=== PATIENT | female | born 1995 | race Caucasian/White ===

== ENCOUNTER → 2017-03-01 | Outpatient (CLI) | payer MEDICAID ==
[~2017-03-01] MED LIST: PRENATAL PLUS1 TA1 PO; REGLAN10 M2 PO
--- NOTE | 2017-03-02 10:27 | RADIOLOGY REPORT PS360 ---
US PREG COMP: INDICATION: OB ultrasound complete ANATOMY OB US ORDERING PHYSICIAN: Walter Leong MD PATIENT AGE: 21 years TECHNIQUE: ultrasound transabdominal scanning. COMPARISON: No previous relevant studies. FINDINGS: Single viable intrauterine gestation. Cephalic position. Placenta: Anterior placenta grade 1. There is average amount fluid. The cervix appears satisfactory. Closed and measuring 3 cm in length. Complete survey performed and was unremarkable on the submitted images as in PACS. No discrete anomalies identified on survey imaging by technologist. Active fetus. Three-vessel cord with satisfactory umbilical cord insertion. 4- chamber heart noted. Survey of brain & ventricles. Face and neck survey unremarkable. Diaphragm and chest views unremarkable. Abdomen: Both kidneys noted and unremarkable. Stomach noted and satisfactory. Spine: Survey of the spine satisfactory with no anomalies identified nor imaged. Both arms and legs noted. Amniotic Fluid: Adequate. Maternal adnexa: No significant findings. Measurements: Average ultrasound age 20 weeks 1 day. Gestational Age 20 weeks 1 day. Estimated due date by ultrasound age 1207/18/2017. Estimated weight 320 grams. BPD = 20 weeks 4 days OFD = 20 weeks 6 days HC = 20 weeks 0 days AC = 20 weeks 2 days FL = 19 weeks 5 days Heart Rate = 144 BPM Cerebellum = 19 weeks 3 days Humerus = 19 weeks 5 days HC/AC is 1.16. CI is 78%. FL/BPD is 65%. FL/AC is 21%. IMPRESSION: There is a single live fetus which is in cephalic presentation at 20 weeks 1 day average ultrasound age. Fetus is active. No obvious anomalies. Placenta is anterior. Please see above for detail
== END ==
LOC: RAD 13:00
DX: Z36 Encounter for antenatal screening of mother (principal)

== ENCOUNTER 2017-06-12 03:18 | Emergency (ER) | payer MEDICAID ==
[~2017-06-12] VITALS: Ht 165.1 cm; Wt 70.3 kg
--- NOTE | 2017-06-12 03:41 | Emergency Room Report ---
History of Present Illness Time Seen by MD Navarro Presenting Problem in Triage Pt arrived:Walked Presenting Problem:CP TO LEFT SIDE RADIATING TO BACK, PT STATES SHE BECAME SOB WHEN PAIN HIT HER AND HER CHEEKS STARTED TO TINGLE. 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 N Clinical Suspician of Infection? N Mental Status: 1 - Regular (Normal Baseline) Sepsis Risk:Possible Sepsis Risk Have you (or family members/close friends) recently traveled outside the [place]? N If Yes, where/when: Have you had exposure to infectious disease within the past month? N TB? Other? Specify: Source patient, RN notes reviewed, family, old records Exam Limitations no limitations Comment 35 week gravid wf who has onset this am of epigastric pain with rad to ant chest this am- no cough or fever and no known cardiac disease Cardiac Chest Pain Chest pain indicative of cardiac No Timing/Duration this morning Severity moderate ALLERGIES Coded Allergies: ciprofloxacin (From CIPRO) (S-DIFF. BREATHING 01/17/17) Home Medications Reported Medications MULTIVIT-MIN W/FE-FA ( Multivitamin Tablet) 1 TAB PO DAILY History Medical History General CAD? No Angina: No NE: No Hypertension? No Hyperlipidemia? No CHF? No DVT? No PE? No COPD? No Asthma? No Anemia? No GERD? No Gastric ulcers? No GI Bleed? No Hernia? No Thyroid Problems? No Hypothyroidism? No CVA? No Seizures? No Diabetes? No Renal Insuffiency? No End Stage Renal Disease? No UTI? Yes Stones? No BPH? No GB Disease: No Nephritic Syndrome? No Asplenia? No Hepatitis? No Sickle Cell Disease? No Arthritis? No Migraines? Yes Cataracts? No Glaucoma? No MRSA? No HIV? No TB? No Anxiety? Yes Depression? No Cancer? No More? 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 Respiratory denies cough, denies shortness of breath, denies wheezing Cardiovascular see HPI, chest pain, denies palpitations, denies syncope Gastrointestinal denies abdominal pain, denies diarrhea, denies vomiting Genitourinary denies: dysuria, frequency, hesitancy, hematuria. Musculoskeletal denies joint pain, denies joint swelling Skin denies rash Psychiatric/Neurological denies headache, denies seizure Physical Exam Vital Signs Vital Signs Date Time Temp Pulse Resp B/P Pulse O2 O2 Flow FiO2 Ox Delivery Rate 06/12 0338 113 20 99 06/12 0323 98.7 113 20 125/87 99 - WBC >12,000 or <4,000 or 10% bands? 2 or more SIRS Criteria Met? B/P:125/87 MAP:99 Creatinine >2.0? UA output<0.5ml/kg/hr for 2 hrs? Platelet count >100,000? Lactate >2.0mmol/1? INR >1.2 or PTT > than 60 sec? Evidence of Organ Dysfunction? Provider documented clinical suspician of infection? N Sepsis Criteria Count: 2 Sepsis Risk: Possible Sepsis Risk General Appearance no apparent distress Eye Exam - bilateral eye PERRL, bilateral eye EOMI Ear, Nose, Throat normal ENT inspection Neck supple Respiratory Status No: respiratory distress. Lung Sounds bilateral: lungs clear. 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 No Results/Orders Laboratory Tests 06/12/17329: Creatine Kinase 31, CK-MB (CK-2) Rel Index 1.6, CK and CKMB Interp < 0.5, Troponin I < 0.02 06/12/17329: Sodium 138, Potassium 3.1 L, Chloride 104, Carbon Dioxide 24, BUN 5 L, Creatinine 0.4 L, Estimated Creat Clear 243 H, Estimated GFR (MDRD) 198, Glucose 99, Calcium 9.1, Total Bilirubin 0.2, AST 15, ALT 11 L, Alkaline Phosphatase 115, Total Protein 6.5, Albumin 2.8 L, Globulin 3.7 H, Albumin/ Globulin Ratio 0.8 L, Amylase 77, Lipase 162, WBC 14.1 H, RBC 3.93 L, Hgb 11.8 L, Hct 34.5 L, MCV 87.7, RDW 13.9, Plt Count 248, MPV 9.2, Gran % 71.9, Gran # 10.2 H, Lymphocytes % 21.0, Monocytes % 5.9, Eosinophils % 1.0, Basophils % 0.3, Lymphocytes # 3.0, Monocytes # 0.8, Eosinophils # 0.1, Basophils # 0.0, PUBS MCHC 34.3, MCH 30.0 Current Medication Orders Sig/Rehan Start time Last Medication Dose Route Stop Time Status Admin Sodium Chloride 10 ML PRN PRN 06/12 345 AC IV 06/13 341 Sodium Chloride 1,000 ML .Q1H1M 06/12 345 AC 06/12 IV 06/12 445 0346 Sodium Chloride 10 ML PRN PRN 06/12 345 AC IV 06/13 345 Sodium Chloride 1,000 ML .STK-MED ONE 06/12 342 DC IV Orders Procedure Date/time Status CARDIAC ENZYMES 06/12 0403 Complete 12 LEAD EKG-LEO (INITIAL) 06/12 346 Active ELECTROCARDIOGRAM REQUEST 06/12 346 Active IV SALINE LOCK 06/12 341 Active LIPASE 06/12 341 Complete CBC WITH AUTO DIFF 06/12 341 Complete CHEM 12 PROFILE 06/12 341 Complete AMYLASE 06/12 341 Complete CM/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 ST/Twave chgs Departure Departure Time of Disposition 440 Disposition DC Home or Self Care(routine) Clinical Impression Primary Impression: Chest pain Qualifiers: Chest pain type: unspecified Qualified Code: R07.9 - Chest pain, unspecified Secondary Impressions: Qualifiers: Weeks of gestation: 35 weeks Qualified Code: Z3A.35 - 35 weeks gestation of Condition STABLE Referrals Salo ALVARADO,Walter J. Patient Instructions DI for -- Discomforts and Remedies Additional Instructions recheck if needed and call dr lombardi for follow up Discharge Counseling Counseled pt/family regarding diagnosis, test results, follow up needs ED Critical Care Critical Care No at [phone]
--- NOTE | 2017-06-12 03:41 | Emergency Room Report ---
History of Present Illness Time Seen by MD Navarro Presenting Problem in Triage Pt arrived:Walked Presenting Problem:CP TO LEFT SIDE RADIATING TO BACK, PT STATES SHE BECAME SOB WHEN PAIN HIT HER AND HER CHEEKS STARTED TO TINGLE. 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 N Clinical Suspician of Infection? N Mental Status: 1 - Regular (Normal Baseline) Sepsis Risk:Possible Sepsis Risk Have you (or family members/close friends) recently traveled outside the [place]? N If Yes, where/when: Have you had exposure to infectious disease within the past month? N TB? Other? Specify: Source patient, RN notes reviewed, family, old records Exam Limitations no limitations Comment 35 week gravid wf who has onset this am of epigastric pain with rad to ant chest this am- no cough or fever and no known cardiac disease Cardiac Chest Pain Chest pain indicative of cardiac No Timing/Duration this morning Severity moderate ALLERGIES Coded Allergies: ciprofloxacin (From CIPRO) (S-DIFF. BREATHING 01/17/17) Home Medications Reported Medications MULTIVIT-MIN W/FE-FA ( Multivitamin Tablet) 1 TAB PO DAILY History Medical History General CAD? No Angina: No CA: No Hypertension? No Hyperlipidemia? No CHF? No DVT? No PE? No COPD? No Asthma? No Anemia? No GERD? No Gastric ulcers? No GI Bleed? No Hernia? No Thyroid Problems? No Hypothyroidism? No CVA? No Seizures? No Diabetes? No Renal Insuffiency? No End Stage Renal Disease? No UTI? Yes Stones? No BPH? No GB Disease: No Nephritic Syndrome? No Asplenia? No Hepatitis? No Sickle Cell Disease? No Arthritis? No Migraines? Yes Cataracts? No Glaucoma? No MRSA? No HIV? No TB? No Anxiety? Yes Depression? No Cancer? No More? 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 Respiratory denies cough, denies shortness of breath, denies wheezing Cardiovascular see HPI, chest pain, denies palpitations, denies syncope Gastrointestinal denies abdominal pain, denies diarrhea, denies vomiting Genitourinary denies: dysuria, frequency, hesitancy, hematuria. Musculoskeletal denies joint pain, denies joint swelling Skin denies rash Psychiatric/Neurological denies headache, denies seizure Physical Exam Vital Signs Vital Signs Date Time Temp Pulse Resp B/P Pulse O2 O2 Flow FiO2 Ox Delivery Rate 06/12 0338 113 20 99 06/12 0323 98.7 113 20 125/87 99 - WBC >12,000 or <4,000 or 10% bands? 2 or more SIRS Criteria Met? B/P:125/87 MAP:99 Creatinine >2.0? UA output<0.5ml/kg/hr for 2 hrs? Platelet count >100,000? Lactate >2.0mmol/1? INR >1.2 or PTT > than 60 sec? Evidence of Organ Dysfunction? Provider documented clinical suspician of infection? N Sepsis Criteria Count: 2 Sepsis Risk: Possible Sepsis Risk General Appearance no apparent distress Eye Exam - bilateral eye PERRL, bilateral eye EOMI Ear, Nose, Throat normal ENT inspection Neck supple Respiratory Status No: respiratory distress. Lung Sounds bilateral: lungs clear. 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 No Results/Orders Laboratory Tests 06/12/17329: Creatine Kinase 31, CK-MB (CK-2) Rel Index 1.6, CK and CKMB Interp < 0.5, Troponin I < 0.02 06/12/17329: Sodium 138, Potassium 3.1 L, Chloride 104, Carbon Dioxide 24, BUN 5 L, Creatinine 0.4 L, Estimated Creat Clear 243 H, Estimated GFR (MDRD) 198, Glucose 99, Calcium 9.1, Total Bilirubin 0.2, AST 15, ALT 11 L, Alkaline Phosphatase 115, Total Protein 6.5, Albumin 2.8 L, Globulin 3.7 H, Albumin/ Globulin Ratio 0.8 L, Amylase 77, Lipase 162, WBC 14.1 H, RBC 3.93 L, Hgb 11.8 L, Hct 34.5 L, MCV 87.7, RDW 13.9, Plt Count 248, MPV 9.2, Gran % 71.9, Gran # 10.2 H, Lymphocytes % 21.0, Monocytes % 5.9, Eosinophils % 1.0, Basophils % 0.3, Lymphocytes # 3.0, Monocytes # 0.8, Eosinophils # 0.1, Basophils # 0.0, PUBS MCHC 34.3, MCH 30.0 Current Medication Orders Sig/Rehan Start time Last Medication Dose Route Stop Time Status Admin Sodium Chloride 10 ML PRN PRN 06/12 345 AC IV 06/13 341 Sodium Chloride 1,000 ML .Q1H1M 06/12 345 AC 06/12 IV 06/12 445 0346 Sodium Chloride 10 ML PRN PRN 06/12 345 AC IV 06/13 345 Sodium Chloride 1,000 ML .STK-MED ONE 06/12 342 DC IV Orders Procedure Date/time Status CARDIAC ENZYMES 06/12 0403 Complete 12 LEAD EKG-LEO (INITIAL) 06/12 346 Active ELECTROCARDIOGRAM REQUEST 06/12 346 Active IV SALINE LOCK 06/12 341 Active LIPASE 06/12 341 Complete CBC WITH AUTO DIFF 06/12 341 Complete CHEM 12 PROFILE 06/12 341 Complete AMYLASE 06/12 341 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 ST/Twave chgs Departure Departure Time of Disposition 440 Disposition DC Home or Self Care(routine) Clinical Impression Primary Impression: Chest pain Qualifiers: Chest pain type: unspecified Qualified Code: R07.9 - Chest pain, unspecified Secondary Impressions: Qualifiers: Weeks of gestation: 35 weeks Qualified Code: Z3A.35 - 35 weeks gestation of Condition STABLE Referrals Salo ALVARADO,Walter J. Patient Instructions DI for -- Discomforts and Remedies Additional Instructions recheck if needed and call dr lombardi for follow up Discharge Counseling Counseled pt/family regarding diagnosis, test results, follow up needs ED Critical Care Critical Care No at 044
[2017-06-12 03:45] LABS: HEMOGLOBIN 11.8 g/dL (12.2-16.2)
--- OUTSIDE RECORDS SUMMARY | 2017-06-12 04:03 | External Medical Summary Rpt | CCD ---
Author Author , GERONIMO MELTON Address Unknown Phone [email or web address] Purpose Continuity of Care Document - 02-10-2012 through 2016 Problems Code Diagnosis DOS Provider Status Z53.21 PROCEDURE 01-25-2017 AND TREATMENT NOT CARRIED OUT DUE TO PATIENT LEAVING PRIOR TO BEING SEEN BY HEALTH CARE PROVIDER F17.210 NICOTINE 11-12-2016 DEPENDENCE, CIGARETTES, UNCOMPLICAT ED F41.9 ANXIETY 11-12-2016 DISORDER, UNSPECIFIED O26.891 OTHER 11-12-2016 SPECIFIED RELATED CONDITIONS, FIRST TRIMESTER S40.862A INSECT BITE 11-12-2016 (NONVENOMOU S) OF LEFT UPPER ARM, INITIAL ENCOUNTER W57.XXXA BITTEN OR 11-12-2016 STUNG BY NONVENOMOUS INSECT AND OTHER NONVENOMOUS ARTHROPODS, INITIAL ENCOUNTER Z88.1 ALLERGY 11-12-2016 STATUS TO OTHER ANTIBIOTIC AGENTS STATUS G43.909 MIGRAINE, UNSP, NOT INTRACTABLE , WITHOUT STATUS MIGRAINOSUS Results Labs Lab Lab Date Result Refere Interp Status Commen Order Detail nces retati t Range on CHLAMYDIA AND GONORRHEA TESTING (11-10-2016 10:30) Chlamyd POSITIV complet ia 017 E ed trachom 10:30 atis rRNA [Presen ce] in Unspeci fied specime n by Probe & target amplifi cation method Neisser NEGATIV complet ia 017 E ed gonorrh 10:30 oeae rRNA [Presen ce] in Unspeci fied specime n by Probe & target amplifi cation method CHLAMYDIA AND GONORRHEA TESTING (11-10-2016 10:30) COLLECT K. 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 WHITE, complet TY 017 NON-HIS ed 10:30 PANIC KIT 03/2017 complet EXPIRAT 017 ed ION 10:30 DATE SYMPTOM NO complet S 017 ed 10:30 REASON VOLUNTE complet FOR 017 ER/MEDI ed REQUEST 10:30 ESTEVAN PROBLEM SPECIME URINE complet N 017 ed SOURCE 10:30 PREGNAN 11-10- YES complet T 017 ed 10:30 CHART N/A complet NUMBER 017 ed 10:30 Chlamyd 11-10- Pending complet ia 017 ed trachom 10:30 atis rRNA [Presen ce] in Unspeci fied specime n by Probe & target amplifi cation method Neisser Pending complet ia 017 ed gonorrh 10:30 oeae rRNA [Presen ce] in Unspeci fied specime n by Probe & target amplifi cation method CHLAMYDIA AND GONORRHEA TESTING (04-30-2015 13:40) [place]lamyd NEGATIV complet ia 015 E ed trachom 13:40 atis rRNA [Presen ce] in Unspeci fied specime n by Probe & target amplifi cation method Neisser NEGATIV complet ia 015 E ed gonorrh 13:40 oeae rRNA [Presen ce] in Unspeci fied specime n by Probe & target amplifi cation method CHLAMYDIA AND GONORRHEA TESTING (04-30-2015 13:40) COLLECT PT/ M. complet OR 015 MAGALY ed 13:40 GOMEZ FLAT CUTTER ETHNICI WHITE, complet TY 015 NON-HIS ed 13:40 PANIC KIT complet EXPIRAT 015 015 ed ION 13:40 DATE SYMPTOM NO complet S 015 ed 13:40 REASON REVISIT complet FOR 015 /ANNUAL ed REQUEST 13:40 FAMILY PLANNIN G VISIT SPECIME URINE complet N 015 ed SOURCE 13:40 PREGNAN NO complet T 015 ed 13:40 CHART NA complet NUMBER 015 ed 13:40 Chlamyd Pending complet ia 015 ed trachom 13:40 atis rRNA [Presen ce] in Unspeci fied specime n by Probe & target amplifi cation method Neisser Pending complet ia 015 ed gonorrh 13:40 oeae rRNA [Presen ce] in Unspeci fied specime n by Probe & target amplifi cation method CHLAMYDIA AND GONORRHEA TESTING (02-10-2012 16:40) [place]lamyd NEGATIV complet ia 012 E ed trachom 16:40 atis rRNA [Presen ce] in Unspeci fied specime n by Probe & target amplifi cation method Neisser NEGATIV complet ia 012 E ed gonorrh 16:40 oeae rRNA [Presen ce] in Unspeci fied specime n by Probe & target amplifi cation method CHLAMYDIA AND GONORRHEA TESTING (02-10-2012 16:40) COLLECT [id number] complet OR 012 ed 16:40 ETHNICI WHITE, complet TY 012 NON-HIS ed 16:40 PANIC KIT 05-25-2 complet EXPIRAT 012 012 ed ION 16:40 DATE SYMPTOM NO complet S 012 ed 16:40 REASON REVISIT complet FOR 012 /ANNUAL ed REQUEST 16:40 FAMILY PLANNIN G VISIT SPECIME URINE complet N 012 ed SOURCE 16:40 PREGNAN NO complet T 012 ed 16:40 CHART NN complet NUMBER 012 ed 16:40 Chlamyd Pending complet ia 012 ed trachom 16:40 atis rRNA [Presen ce] in Unspeci fied specime n by Probe & target amplifi cation method Neisser Pending complet ia 012 ed gonorrh 16:40 oeae rRNA [Presen ce] in Unspeci fied specime n by Probe & target amplifi cation method
--- OUTSIDE RECORDS SUMMARY | 2017-06-12 04:03 | External Medical Summary Rpt | CCD ---
Author Author [employer] Organization [employer] Address Unknown Phone Unavailable Purpose Continuity of Care Document - through 2016
--- OUTSIDE RECORDS SUMMARY | 2017-06-12 04:03 | External Medical Summary Rpt | CCD ---
Author Author , GERONIMO MELTON Address Unknown Phone [email or web address] Purpose Continuity of Care Document - 02-10-2012 [...] K. 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
--- OUTSIDE RECORDS SUMMARY | 2017-06-12 04:04 | External Medical Summary Rpt | CCD ---
Demographics Preferred Language Albanian Marital Status Unknown Religion Affiliation Unknown Race Unknown Ethnic Group Unknown Author Author , GERONIMO MELTON Address Unknown Phone Immunization Unable to retrieve immunization data due to connection failure with Immunization Registry. Please try again later.
--- OUTSIDE RECORDS SUMMARY | 2017-06-12 04:04 | External Medical Summary Rpt | CCD ---
Demographics Preferred Language Irish Marital Status Unknown Christianity Affiliation Unknown Race Unknown Ethnic Group Unknown Author Author , GERONIMO MELTON Address Unknown Phone Immunization Unable to retrieve immunization data due to connection failure with Immunization Registry. Please try again later.
--- OUTSIDE RECORDS SUMMARY | 2017-06-12 04:05 | External Medical Summary Rpt ---
Author Author [employer], [employer] Organization [employer] Address Unknown Phone Unavailable Results CBC W Auto Differential panel in Blood Observa Value Referen Units Interpr Notes Date tion ce etation Range Basophils 0 - 0.2 K/MM3 Normal No Jun 12 informati 2016 3:30 [#/volume on in AM ] in source Blood by data Automated count Basophils 0.1 - 2.0 % Normal No Jun 12 /100 informati 2017 3:30 leukocyte on in AM s in source Blood by data Automated count Eosinophi 0.0 - 0.4 K/mm3 Normal No Jun 12 ls informati 2016 3:30 [#/volume on in AM ] in source Blood by data Automated count Eosinophi 0.1 - % Normal No Jun 12 ls/100 12.0 informati 2016 3:30 leukocyte on in AM s in source Blood by data Automated count Granulocy 1.8 - 7.8 K/mm3 High No Jun 12 ansley informati 2017 3:30 [#/volume on in AM ] in source Blood by data Automated count Granulocy 37.0 - % Normal No Jun 12 ansley/100 80.0 informati 2016 3:30 leukocyte on in AM s in source Blood by data Automated count Hematocri 37.0 - % Low No Jun 12 t [Volume 47.0 informati 2016 3:30 on in AM Fraction] source of Blood data Hemoglobi 12.2 - g/dL Low No Jun 12 n 16.2 informati 2016 3:30 [Mass/vol on in AM ume] in source Blood data Lymphocyt 0.7 - 4.5 K/mm3 Normal No Jun 12 es informati 2016 3:30 [#/volume on in AM ] in source Unspecifi data ed specimen by Automated count Lymphocyt 10 - 50.0 % Normal No Jun 12 es informati 2016 3:30 [#/volume on in AM ] in source Unspecifi data ed specimen by Automated count Erythrocy 27 - 31.2 pg Normal No Jun 12 te mean informati 2016 3:30 corpuscul on in AM ar source hemoglobi data n [Entitic mass] Erythrocy 31.8 - g/dl Normal No Jun 12 te mean 35.4 informati 2016 3:30 corpuscul on in AM ar source hemoglobi data n concentra tion [Mass/vol ume] by Automated count Erythrocy 82.2 - fl Normal No Jun 12 te mean 97.8 informati 2016 3:30 corpuscul on in AM ar volume source [Entitic data volume] by Automated count Monocytes 0.1 - 1.0 K/mm3 Normal No Jun 12 informati 2016 3:30 [#/volume on in AM ] in source Blood by data Automated count Monocytes 1.7 - 9.3 % Normal No Jun 12 /100 informati 2016 3:30 leukocyte on in AM s in source Blood by data Automated count Platelet 7.4 - fl Normal No Jun 12 mean 10.4 informati 2016 3:30 volume on in AM [Entitic source volume] data in Blood by Automated count Platelets 142 - 424 K/mm3 Normal No Jun 12 inform2016 3:30 [#/volume on in AM ] in source Blood data Erythrocy 4.2 - 5.4 M/mm3 Low No Jun 12 ansley informati 2016 3:30 [#/volume on in AM ] in source Amniotic data fluid Erythrocy 11.5 - % Normal No Jun 12 te 17.5 informati 2016 3:30 distribut on in AM ion width source [Entitic data volume] by Automated count Leukocyte 4.8 - K/MM3 High No Jun 12 s 10.8 informati 2016 3:30 [#/volume on in AM ] in source Blood data Comprehensive metabolic 2000 panel in Serum or Plasma Observa Value Referen Units Interpr Notes Date tion ce etation Range Albumin/G 1.1 - 1.8 No Normal No Jan 17 lobulin informati informati 2016 2:25 [Mass on in on in PM ratio] in source source Serum or data data Plasma Albumin 3.4 - 5.0 gm/dL Normal No Jan 17 [Mass/vol informati 2016 2:25 ume] in on in PM Serum or source Plasma data Alkaline 46 - 116 U/L Normal No Jan 17 phosphata informati 2016 2:25 se on in PM [Enzymati source c data activity/ volume] in Serum or Plasma Bilirubin 0.2 - 1.0 mg/dL Normal No Jan 17 .total informati 2016 2:25 [Mass/vol on in PM ume] in source Serum or data Plasma Urea 7 - 18 mg/dL Low No Jan 17 nitrogen informati 2017 2:25 [Mass/vol on in PM ume] in source Serum or data Plasma Calcium 8.5 - mg/dL Normal No Jan 17 [Mass/vol 10.1 informati 2017 2:25 ume] in on in PM Serum or source Plasma data Chloride 98 - 107 mmoL/L Normal No Jan 17 [Moles/vo informati 2017 2:25 lume] in on in PM Serum or source Plasma data Carbon 21.0 - mmoL/L Normal No Jan 17 dioxide, 32.0 informati 2017 2:25 total on in PM [Moles/vo source lume] in data Serum or Plasma Creatinin 0.55 - mg/dL Low No Jan 17 e 1.02 informati 2016 2:25 [Mass/vol on in PM ume] in source Serum or data Plasma Creatinin 50 - 200 ML/MIN Normal No Jan 17 e renal informati 2016 2:25 clearance on in PM source predicted data by Cockcroft -Gault formula Estimated 59- ML/MIN No REFERENCE Jan 17 informati RANGE: 2017 2:25 glomerula on in >60 PM r source ML/MIN/1. filtratio data 73 SQUARE n rate METERSIf (GF this patient is -A merican, then multiply theresult by 1.210. Globulin 1.3 - 3.2 gm/dL High No Jan 17 [Mass/vol informati 2016 2:25 ume] in on in PM Serum source data Glucose 74 - 106 mg/dL Normal No Jan 17 [Mass/vol informati 2017 2:25 ume] in on in PM Serum or source Plasma data Potassium 3.5 - 5.1 mmoL/L Normal No Jan 17 informati 2017 2:25 [Moles/vo on in PM lume] in source Serum or data Plasma Sodium 136 - 145 mmoL/L Normal No Jan 17 [Moles/vo informati 2017 2:25 lume] in on in PM Serum or source Plasma data Aspartate 15 - 37 U/L Low No Jan 17 informati 2017 2:25 aminotran on in PM sferase source [Enzymati data c activity/ volume] in Serum or Plasma Alanine 12 - 78 U/L Normal No Jan 17 aminotran inform2016 2:25 sferase on in PM [Enzymati source c data activity/ volume] in Serum or Plasma Protein 6.4 - 8.2 gm/dL Normal No Jan 17 [Mass/vol inform2016 2:25 ume] in on in PM Serum or source Plasma data CBC W Auto Differential panel in Blood Observa Value Referen Units Interpr Notes Date tion ce etation Range Basophils 0 - 0.2 K/MM3 Normal No Jan 17 inform2016 2:25 [#/volume on in PM ] in source Blood by data Automated count Basophils 0.1 - 2.0 % Normal No Jan 17 /100 informati 2016 2:25 leukocyte on in PM s in source Blood by data Automated count Eosinophi 0.0 - 0.4 K/mm3 Normal No Jan 17 ls inform2016 2:25 [#/volume on in PM ] in source Blood by data Automated count Eosinophi 0.1 - % Normal No Jan 17 ls/100 12.0 inform2016 2:25 leukocyte on in PM s in source Blood by data Automated count Granulocy 1.8 - 7.8 K/mm3 High No Jan 17 ansley informati 2016 2:25 [#/volume on in PM ] in source Blood by data Automated count Granulocy 37.0 - % Normal No Jan 17 ansley/100 80.0 inform2016 2:25 leukocyte on in PM s in source Blood by data Automated count Hematocri 37.0 - % Low No Jan 17 t [Volume 47.0 2016 2:25 on in PM Fraction] source of Blood data Hemoglobi 12.2 - g/dL Low No Jan 17 n 16.2 inform2016 2:25 [Mass/vol on in PM ume] in source Blood data Lymphocyt 0.7 - 4.5 K/mm3 Normal No Jan 17 es informati 2016 2:25 [#/volume on in PM ] in source Unspecifi data ed specimen by Automated count Lymphocyt 10 - 50.0 % Normal No Jan 17 es inform2016 2:25 [#/volume on in PM ] in source Unspecifi data ed specimen by Automated count Erythrocy 27 - 31.2 pg Normal No Jan 17 te mean ati 2016 2:25 corpuscul on in PM ar source hemoglobi data n [Entitic mass] Erythrocy 31.8 - g/dl Normal No Jan 17 te mean 35.4 inform2016 2:25 corpuscul on in PM ar source hemoglobi data n concentra tion [Mass/vol ume] by Automated count Erythrocy 82.2 - fl Normal No Jan 17 te mean 97.8 inform2016 2:25 corpuscul on in PM ar volume source [Entitic data volume] by Automated count Monocytes 0.1 - 1.0 K/mm3 Normal No Jan 17 inform2016 2:25 [#/volume on in PM ] in source Blood by data Automated count Monocytes 1.7 - 9.3 % Normal No Jan 17 /100 informati 2016 2:25 leukocyte on in PM s in source Blood by data Automated count Platelet 7.4 - fl Normal No Jan 17 mean 10.4 informati 2016 2:25 volume on in PM [Entitic source volume] data in Blood by Automated count Platelets 142 - 424 K/mm3 Normal No Jan 17 inform2016 2:25 [#/volume on in PM ] in source Blood data Erythrocy 4.2 - 5.4 M/mm3 Low No Jan 17 ansley inform2016 2:25 [#/volume on in PM ] in source Amniotic data fluid Erythrocy 11.5 - % Normal No Jan 17 te 17.5 informati 2016 2:25 distribut on in PM ion width source [Entitic data volume] by Automated count Leukocyte 4.8 - K/MM3 High No Jan 17 s 10.8 informati 2016 2:25 [#/volume on in PM ] in source Blood data CHLAMYDIA AND GONORRHEA TESTING Observa Value Referen Units Interpr Notes Date tion ce etation Range COLLECT K. No No No No Nov 10 OR TITUS, informa informa informa informa 2017 BUFFER NICKEL tion in tion in tion in tion in 10:30 source source source source AM data data data data ETHNICI WHITE, No No No No Nov 10 TY NON-HIS informa informa informa informa 2017 PANIC tion in tion in tion in tion in 10:30 source source source source AM data data data data KIT 03/2017 No No No No Nov 10 EXPIRAT informa informa informa informa 2017 ION tion in tion in tion in tion in 10:30 DATE source source source source AM data data data data SYMPTOM NO No No No No Nov 10 S informa informa informa informa 2017 tion in tion in tion in tion in 10:30 source source source source AM data data data data REASON VOLUNTE No No No No Nov 10 FOR ER/MEDI informa informa informa informa 2017 REQUEST ESTEVAN tion in tion in tion in tion in 10:30 PROBLEM source source source source AM data data data data SPECIME URINE No No No No Nov 10 N informa informa informa informa 2017 SOURCE tion in tion in tion in tion in 10:30 source source source source AM data data data data PREGNAN YES No No No No Nov 10 T informa informa informa informa 2017 tion in tion in tion in tion in 10:30 source source source source AM data data data data CHART N/A No No No No Nov 10 NUMBER informa informa informa informa 2017 tion in tion in tion in tion in 10:30 source source source source AM data data data data Chlamyd POSITIV No No No NEGATIV Nov 10 ia E informa informa informa E 2017 trachom tion in tion in tion in RESULT= 10:30 atis source source source WITHIN AM rRNA data data data NORMAL [Presen ce] in LIMITSP Unspeci OSITIVE fied specime RESULT= n by Probe & ABNORMA target LEQUIVO ESTEVAN amplifi RESULT= cation method INDETER MINATEU NSATISF ACTORY RESULT= INVALID Neisser NEGATIV No No No NEGATIV Nov 10 ia E informa informa informa E 2017 gonorrh tion in tion in tion in RESULT= 10:30 oeae source source source WITHIN AM rRNA data data data NORMAL [Presen ce] in LIMITSP Unspeci OSITIVE fied specime RESULT= n by Probe & ABNORMA target LEQUIVO ESTEVAN amplifi RESULT= cation method INDETER MINATEU NSATISF ACTORY RESULT= INVALID THE APTIMA COMBO 2 ASSAY IS NOT INTENDE D FOR THE EVALUAT ION OF SUSPECT EDSEXUA L ABUSE OR FOR OTHER MEDICO- LEGAL INDICAT IONS. FOR THOSE PATIENT S FORWHOM A FALSE POSITIV E RESULT MAY HAVE ADVERSE PSYCHO- SOCIAL IMPACT, THE [facility] MMENDS RETESTI NG.\.br \This report contain s patient informa tion that must be protect ed in accorda nce with the Health Insuran ce David shaw and Account ability Act. CHLAMYDIA AND GONORRHEA TESTING Observa Value Referen Units Interpr Notes Date tion ce etation Range COLLECT K. No No No No Nov 10 OR TITUS, informa informa informa informa 2017 BUFFER NICKEL tion in tion in tion in tion in 10:30 source source source source AM data data data data ETHNICI WHITE, No No No No Nov 10 TY NON-HIS informa informa informa informa 2017 PANIC tion in tion in tion in tion in 10:30 source source source source AM data data data data KIT 03/2017 No No No No Nov 10 EXPIRAT informa informa informa informa 2017 ION tion in tion in tion in tion in 10:30 DATE source source source source AM data data data data SYMPTOM NO No No No No Nov 10 S informa informa informa informa 2017 tion in tion in tion in tion in 10:30 source source source source AM data data data data REASON VOLUNTE No No No No Nov 10 FOR ER/MEDI informa informa informa informa 2017 REQUEST ESTEVAN tion in tion in tion in tion in 10:30 PROBLEM source source source source AM data data data data SPECIME URINE No No No No Nov 10 N informa informa informa informa 2017 SOURCE tion in tion in tion in tion in 10:30 source source source source AM data data data data PREGNAN YES No No No No Nov 10 T informa informa informa informa 2017 tion in tion in tion in tion in 10:30 source source source source AM data data data data CHART N/A No No No No Nov 10 NUMBER informa informa informa informa 2017 tion in tion in tion in tion in 10:30 source source source source AM data data data data Chlamyd Pending No No No No Nov 10 ia informa informa informa informa 2017 trachom tion in tion in tion in tion in 10:30 atis source source source source AM rRNA data data data data [Presen ce] in Unspeci fied specime n by Probe & target amplifi cation method Neisser Pending No No No \.br\Nov 10 ia informa informa informa is 2017 gonorrh tion in tion in tion in report 10:30 oeae source source source contain AM rRNA data data data s [Presen patient ce] in Unspeci informa fied tion specime that n by must be Probe & target protect ed in amplifi accorda cation nce method with the Health Insuran ce David lity and Account ability Act. CHLAMYDIA AND GONORRHEA TESTING Observa Value Referen Units Interpr Notes Date tion ce etation Range COLLECT PT/ M. No No No No Apr 30 OR MAGALY informa informa informa informa 2015 GOMEZ tion in tion in tion in tion in 1:40 PM BUFFER NICKEL source source source source data data data data ETHNICI WHITE, No No No No Apr 30 TY NON-HIS informa informa informa informa 2015 PANIC tion in tion in tion in tion in 1:40 PM source source source source data data data data KIT 10-31-2 No No No No Apr 30 EXPIRAT 015 informa informa informa informa 2015 ION tion in tion in tion in tion in 1:40 PM DATE source source source source data data data data SYMPTOM NO No No No No Apr 30 S informa informa informa informa 2015 tion in tion in tion in tion in 1:40 PM source source source source data data data data REASON REVISIT No No No No Apr 30 FOR /ANNUAL informa informa informa informa 2015 REQUEST FAMILY tion in tion in tion in tion in 1:40 PM source source source source PLANNIN data data data data G VISIT SPECIME URINE No No No No Apr 30 N informa informa informa informa 2015 SOURCE tion in tion in tion in tion in 1:40 PM source source source source data data data data PREGNAN NO No No No No Apr 30 T informa informa informa informa 2015 tion in tion in tion in tion in 1:40 PM source source source source data data data data CHART NA No No No No Apr 30 NUMBER informa informa informa informa 2015 tion in tion in tion in tion in 1:40 PM source source source source data data data data Chlamyd NEGATIV No No No NEGATIV Apr 30 ia E informa informa informa E 2015 trachom tion in tion in tion in RESULT= 1:40 PM atis source source source WITHIN rRNA data data data NORMAL [Presen ce] in LIMITSP Unspeci OSITIVE fied specime RESULT= n by Probe & ABNORMA target LEQUIVO ESTEVAN amplifi RESULT= cation method INDETER MINATEU NSATISF ACTORY RESULT= INVALID Neisser NEGATIV No No No NEGATIV Apr 30 ia E informa informa informa E 2015 gonorrh tion in tion in tion in RESULT= 1:40 PM oeae source source source WITHIN rRNA data data data NORMAL [Presen ce] in LIMITSP Unspeci OSITIVE fied specime RESULT= n by Probe & ABNORMA target LEQUIVO ESTEVAN amplifi RESULT= cation method INDETER MINATEU NSATISF ACTORY RESULT= INVALID THE APTIMA COMBO 2 ASSAY IS NOT INTENDE D FOR THE EVALUAT ION OF SUSPECT EDSEXUA L ABUSE OR FOR OTHER MEDICO- LEGAL INDICAT IONS. FOR THOSE PATIENT S FORWHOM A FALSE POSITIV E RESULT MAY HAVE ADVERSE PSYCHO- SOCIAL IMPACT, [facility].\.br \This report contain s patient informa tion that must be protect ed in accorda nce with the Health Insuran ce Portabi lity and Account ability Act. CHLAMYDIA AND GONORRHEA TESTING Observa Value Referen Units Interpr Notes Date tion ce etation Range COLLECT PT/ M. No No No No Apr 30 OR MAGALY informa informa informa informa 2015 GOMEZ tion in tion in tion in tion in 1:40 PM BUFFER NICKEL source source source source data data data data ETHNICI WHITE, No No No No Apr 30 TY NON-HIS informa informa informa informa 2015 PANIC tion in tion in tion in tion in 1:40 PM source source source source data data data data KIT 10-31-2 No No No No Apr 30 EXPIRAT 015 informa informa informa informa 2015 ION tion in tion in tion in tion in 1:40 PM DATE source source source source data data data data SYMPTOM NO No No No No Apr 30 S informa informa informa informa 2015 tion in tion in tion in tion in 1:40 PM source source source source data data data data REASON REVISIT No No No No Apr 30 FOR /ANNUAL informa informa informa informa 2015 REQUEST FAMILY tion in tion in tion in tion in 1:40 PM source source source source PLANNIN data data data data G VISIT SPECIME URINE No No No No Apr 30 N informa informa informa informa 2015 SOURCE tion in tion in tion in tion in 1:40 PM source source source source data data data data PREGNAN NO No No No No Apr 30 T informa informa informa informa 2015 tion in tion in tion in tion in 1:40 PM source source source source data data data data CHART NA No No No No Apr 30 NUMBER informa informa informa informa 2015 tion in tion in tion in tion in 1:40 PM source source source source data data data data Chlamyd Pending No No No No Apr 30 ia informa informa informa informa 2015 trachom tion in tion in tion in tion in 1:40 PM atis source source source source rRNA data data data data [Presen ce] in Unspeci fied specime n by Probe & target amplifi cation method Neisser Pending No No No \.br\Apr 30 ia informa informa informa is 2015 gonorrh tion in tion in tion in report 1:40 PM oeae source source source contain rRNA data data data s [Presen patient ce] in Unspeci informa fied tion specime that n by must be Probe & target protect ed in amplifi accorda cation nce method with the Health Insuran ce Portabi lity and Account ability Act. CHLAMYDIA AND GONORRHEA TESTING Observa Value Referen Units Interpr Notes Date tion ce etation Range COLLECT C3974 No No No No Feb 09 OR informa informa informa informa 2012 tion in tion in tion in tion in 4:40 PM source source source source data data data data ETHNICI WHITE, No No No No Feb 09 TY NON-HIS informa informa informa informa 2012 PANIC tion in tion in tion in tion in 4:40 PM source source source source data data data data KIT 10-31-2 No No No No Feb 09 EXPIRAT 012 informa informa informa informa 2012 ION tion in tion in tion in tion in 4:40 PM DATE source source source source data data data data SYMPTOM NO No No No No Feb 09 S informa informa informa informa 2012 tion in tion in tion in tion in 4:40 PM source source source source data data data data REASON REVISIT No No No No Feb 09 FOR /ANNUAL informa informa informa informa 2012 REQUEST FAMILY tion in tion in tion in tion in 4:40 PM source source source source PLANNIN data data data data G VISIT SPECIME URINE No No No No Feb 09 N informa informa informa informa 2012 SOURCE tion in tion in tion in tion in 4:40 PM source source source source data data data data PREGNAN NO No No No No Feb 09 T informa informa informa informa 2012 tion in tion in tion in tion in 4:40 PM source source source source data data data data CHART NN No No No No Feb 09 NUMBER informa informa informa informa 2012 tion in tion in tion in tion in 4:40 PM source source source source data data data data Chlamyd NEGATIV No No No NEGATIV Feb 09 ia E informa informa informa E 2012 trachom tion in tion in tion in RESULT= 4:40 PM atis source source source WITHIN rRNA data data data NORMAL [Presen ce] in LIMITSP Unspeci OSITIVE fied specime RESULT= n by Probe & ABNORMA target LEQUIVO ESTEVAN amplifi RESULT= cation method INDETER MINATEU NSATISF ACTORY RESULT= INVALID Neisser NEGATIV No No No NEGATIV Feb 09 ia E informa informa informa E 2012 gonorrh tion in tion in tion in RESULT= 4:40 PM oeae source source source WITHIN rRNA data data data NORMAL [Presen ce] in LIMITSP Unspeci OSITIVE fied specime RESULT= n by Probe & ABNORMA target LEQUIVO ESTEVAN amplifi RESULT= cation method INDETER MINATEU NSATISF ACTORY RESULT= INVALID THE APTIMA COMBO 2 ASSAY IS NOT INTENDE D FOR THE EVALUAT ION OF SUSPECT EDSEXUA L ABUSE OR FOR OTHER MEDICO- LEGAL INDICAT IONS. FOR THOSE PATIENT S FORWHOM A FALSE POSITIV E RESULT MAY HAVE ADVERSE PSYCHO- SOCIAL IMPACT, [facility] NG.\.br \This report contain s patient informa tion that must be protect ed in [place] nce with the Health Insuran ce Portabi lity and Account ability Act. CHLAMYDIA AND GONORRHEA TESTING Observa Value Referen Units Interpr Notes Date tion ce etation Range COLLECT C3974 No No No No Feb 09 OR informa informa informa informa 2012 tion in tion in tion in tion in 4:40 PM source source source source data data data data ETHNICI WHITE, No No No No Feb 09 TY NON-HIS informa informa informa informa 2012 PANIC tion in tion in tion in tion in 4:40 PM source source source source data data data data KIT 10-31-2 No No No No Feb 09 EXPIRAT 012 informa informa informa informa 2012 ION tion in tion in tion in tion in 4:40 PM DATE source source source source data data data data SYMPTOM NO No No No No Feb 09 S informa informa informa informa 2012 tion in tion in tion in tion in 4:40 PM source source source source data data data data REASON REVISIT No No No No Feb 09 FOR /ANNUAL informa informa informa informa 2012 REQUEST FAMILY tion in tion in tion in tion in 4:40 PM source source source source PLANNIN data data data data G VISIT SPECIME URINE No No No No Feb 09 N informa informa informa informa 2012 SOURCE tion in tion in tion in tion in 4:40 PM source source source source data data data data PREGNAN NO No No No No Feb 09 T informa informa informa informa 2012 tion in tion in tion in tion in 4:40 PM source source source source data data data data CHART NN No No No No Feb 09 NUMBER informa informa informa informa 2012 tion in tion in tion in tion in 4:40 PM source source source source data data data data Chlamyd Pending No No No No Feb 09 ia informa informa informa informa 2012 trachom tion in tion in tion in tion in 4:40 PM atis source source source source rRNA data data data data [Presen ce] in Unspeci fied specime n by Probe & target amplifi cation method Neisser Pending No No No \.br\Th Feb 09 ia informa informa informa is 2011 gonorrh tion in tion in tion in report 4:40 PM oeae source source source contain rRNA data data data s [Presen patient ce] in Unspeci informa fied tion specime that n by must be Probe & target protect ed in amplifi accorda cation nce method with the Health Insuran ce Portabi lity and Account ability Act.
--- OUTSIDE RECORDS SUMMARY | 2017-06-12 04:05 | External Medical Summary Rpt ---
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
[2017-06-12 04:56] VITALS: BP 125/87
== END 2017-06-12 04:57 | disposition home or self-care (01) ==
LOC: ER 03:18
PROVIDERS: Emergency Medicine
DX: R07.9 Chest pain, unspecified (principal); Z3A.35 35 weeks gestation of pregnancy; Z87.891 Personal history of nicotine dependence; R10.13 Epigastric pain

== ENCOUNTER → 2017-06-16 | Outpatient (CLI) | payer MEDICAID | LOC: LAB 17:03 | DX: Z34.80 Encounter for supervision of other normal pregnancy, unspecified trimester (principal) ==

== ENCOUNTER 2017-07-01 10:10 | Outpatient (CLI) | payer MEDICAID ==
[~2017-07-01] VITALS: Ht 165.1 cm; Wt 75.0 kg
[2017-07-01 10:31] VITALS: BP 119/81
[2017-07-01 10:31] LABS: URINE BILIRUBIN - DIPSTICK NEGATIVE (NEG); URINE BLOOD TRACE-INTACT (NEG)
[2017-07-01 10:53] LABS: URINE SQUAMOUS CELLS TNTC #/hpf (0-5)
== END 2017-07-01 11:58 | disposition home or self-care (01) ==
LOC: OBOUT 10:10 → OB 10:11 → OBOUT 11:58
PROVIDERS: Obstetrics & Gynecology
DX: O26.93 Pregnancy related conditions, unspecified, third trimester (principal); Z3A.38 38 weeks gestation of pregnancy; M54.5 Low back pain